=== PATIENT | female | born 1995 | race Caucasian/White ===

== ENCOUNTER 2020-06-19 17:22 | Inpatient (IN) ==
[~2020-06-19 17:22] MED LIST: *HR* FentaNYL (PF) 100 MCG/2 ML VIAL IVP PRN; Azithromycin 500 MG in 0.9 % Sodium Chloride 250 ML IVPB ONE; Famotidine 20 MG/2 ML VIAL IVP PRN; Lidocaine 1% 20 ML MDV INFILT PRN; Metoclopramide 10 MG/2 ML VIAL IVP PRN; Naloxone 0.4 MG/ML INJ IVP PRN; Ondansetron 4 MG/2 ML VIAL IVP PRN
[2020-06-19] MEDS ORDERED: Ringers Solution, Lactated 1,000 ML ONE (17:28)
[2020-06-19] MEDS: Ringers Solution, Lactated 1,000 ML IVC SCH ×2 (17:30→23:07)
[2020-06-19 17:52] LABS: Basophils % 0.2 %; Eosinophils % 0.4 %; Hematocrit 35.2 % (35.3-44.9); Hemoglobin 12.1 g/dL (11.5-15.4); Immature Granulocytes % 0.5 % (0-4); Lymphocytes # 1.4 K/mcL (0.6-4.6); Mean Corpuscular HGB Conc 34.4 g/dL (31.6-35.5); Mean Corpuscular Hemoglobin 32.3 pg (28.0-33.3); Mean Corpuscular Volume 93.9 fL (83.0-100.0); Mean Platelet Volume 11.5 fL (9.4-12.4); Monocytes # 0.6 K/mcL (0.0-1.3); Monocytes % 5.2 %; Neutrophils # 8.9 K/mcL (1.6-8.9); Platelet Count 220 K/mcL (140-400); Red Blood Count 3.75 M/mcL (3.82-4.97); Red Cell Distribution Width 13.2 % (11.5-14.5); Segmented Neutrophils % 80.7 %; White Blood Count 11.1 K/mcL (4.3-11.1)
[2020-06-19 18:08] LABS: Amphetamine Screen,Urine Negative ng/mL (Cutoff=1000); Barbiturate Screen,Urine Negative ng/mL (Cutoff=200); Benzodiazepines Screen,Urine Negative ng/mL (Cutoff=200); Cannabinoid Screen,Urine Negative ng/mL (Cutoff = 50); Cocaine Screen,Urine Negative ng/mL (Cutoff= 300); Opiate Screen,Urine Negative ng/mL (Cutoff=300); Phencyclidine Screen,Urine Negative ng/mL (Cutoff=25)
[2020-06-19] MEDS: Oxytocin 20 units/ LR 1000 mL 20 UNIT/1,000 ML BAG IVC SCH (18:40)
[2020-06-19] MEDS ORDERED: EPHEDrine 50 MG/ML VIAL IVP PRN (18:50)
[2020-06-20] MEDS: Ringers Solution, Lactated 1,000 ML IVC SCH ×2 (00:18→07:28)
[2020-06-20] MEDS: Epidural Premix (fent/bupiv) 110 ML EP SCH ×2 (00:22→08:12)
[2020-06-20] MEDS ORDERED: Famotidine 20 MG/2 ML VIAL IVP ONE (05:48)
[2020-06-20] MEDS: Oxytocin 20 units/ LR 1000 mL 20 UNIT/1,000 ML BAG IVC SCH (15:25)
[2020-06-20] MEDS ORDERED: Lanolin 7 G OINT...G. TP PRN (16:36)
[2020-06-20] MEDS ORDERED: Oxytocin 20 units/ LR 1000 mL 20 UNIT/1,000 ML BAG IVC SCH (16:36)
[2020-06-20] MEDS ORDERED: Benzocaine/Menthol 56 GM AEROSOL SPRAY TP PRN (16:36)
[2020-06-20] MEDS ORDERED: Acetaminophen 325 MG TABLET PO PRN (16:36)
[2020-06-20] MEDS ORDERED: Oxytocin 20 units/ LR 1000 mL 20 UNIT/1,000 ML BAG IVC ONE (16:36)
[2020-06-20] MEDS ORDERED: Sennosides 8.6 MG TABLET PO PRN (16:36)
[2020-06-20] MEDS: Ibuprofen 600 MG TABLET PO PRN (18:53)
[2020-06-21 06:04] LABS: Basophils % 0.1 %; Eosinophils # 0.1 K/mcL (0.0-0.6); Eosinophils % 0.6 %; Hematocrit 23.9 % (35.3-44.9); Hemoglobin 8.1 g/dL (11.5-15.4); Immature Granulocytes % 0.5 % (0-4); Lymphocytes % 11.4 %; Mean Corpuscular HGB Conc 33.9 g/dL (31.6-35.5); Mean Corpuscular Hemoglobin 33.6 pg (28.0-33.3); Mean Corpuscular Volume 99.2 fL (83.0-100.0); Mean Platelet Volume 11.8 fL (9.4-12.4); Monocytes # 0.9 K/mcL (0.0-1.3); Monocytes % 4.9 %; Neutrophils # 14.5 K/mcL (1.6-8.9); Platelet Count 164 K/mcL (140-400); Red Blood Count 2.41 M/mcL (3.82-4.97); Red Cell Distribution Width 13.3 % (11.5-14.5); Segmented Neutrophils % 82.5 %; White Blood Count 17.6 K/mcL (4.3-11.1)
[2020-06-21 07:46] VITALS: BP 110/75
[2020-06-21] MEDS ORDERED: Prenatal Vit/FA 1 EACH TABLET PO SCH (09:00)
[2020-06-21] MEDS: Ibuprofen 600 MG TABLET PO PRN (11:45)
== END 2020-06-21 14:20 | disposition home or self-care (01) | DRG 806 ==
LOC: 1NENULAB → 1NENUOBS 06-20 16:19
PROVIDERS: ADMIT Obstetrics & Gynecology; ATTEND Obstetrics & Gynecology